=== PATIENT | male | born 1940 | race Caucasian/White ===

== ENCOUNTER → 2017-06-26 | Outpatient (CLI) | payer OTHER ==
[~2017-06-26] MED LIST: ACETAMINOPHEN325 M1 PO; ANAPROX; ASPIRIN325 PO; AZITHROMYCIN 2250 MG PO; BACTRIM DS TAB1 EACH PO; CO Q-10; COLACE100 MG PO; FISH OIL 1,0001 EAC5; HYDROCODON-ACE1 EAC7 PO; KEFLEX500 MG PO; LISINOPRIL-HCT1 EAC2; METAMUCIL PAC1 UDPK1 PO; MOM PO; MULTIVITAMINS1 EAC7; NEXIUM; OXYIR 5 MG CAPSU5 M1 PO; SIMVASTATIN40 MG; XARELTO10 M1 PO; ZOCOR
== END ==
LOC: M.LAB 10:23
DX: Z01.812 Encounter for preprocedural laboratory examination (principal)

== ENCOUNTER → 2019-03-17 | Outpatient (CLI) | payer OTHER | LOC: M.ULTRA 12:56 | DX: I73.9 Peripheral vascular disease, unspecified (principal) ==

== ENCOUNTER 2019-08-05 19:12 | Emergency (ER) | payer MEDICARE ==
[~2019-08-05] VITALS: Ht 177.8 cm; Wt 74.8 kg
[2019-08-05 20:31] LABS: HEMATOCRIT 39.4 % (42.0-52.0); HEMOGLOBIN 13.9 gm/dL (14.0-18.0); MCH 30.6 pg (26.0-34.0); MCHC 35.2 g/dL (28.0-37.0); MCV 86.9 fL (80.0-100.0); MPV 10.1 fl. (7.2-11.1); NUCLEATED RBCS 0 /100WBC; PLATELET COUNT* 155 thou/uL (150-400); RBC 4.53 mil/uL (4.50-6.00); RDW-CV 14.4 % (10.5-14.5)
[2019-08-05 20:37] LABS: CALCIUM 7.9 mg/dL (8.5-10.1); CREATININE 0.8 mg/dL (0.6-1.3); POTASSIUM 4.8 mmol/L (3.5-5.1)
[2019-08-05 20:48] LABS: ALBUMIN 3.6 g/dL (3.4-5.0); TOTAL BILIRUBIN 0.8 mg/dL (<0.1-1.0); TOTAL PROTEIN 7.1 g/dL (6.4-8.2)
[2019-08-05 20:56] LABS: URINE BILIRUBIN NEGATIVE (Negative); URINE BLOOD NEGATIVE (Negative); URINE CLARITY CLEAR; URINE COLOR YELLOW; URINE GLUCOSE-RANDOM NEGATIVE (Negative); URINE KETONES 1+ (Negative); URINE LEUKOCYTES-REFLEX NEGATIVE (Negative); URINE NITRITE-REFLEX NEGATIVE (Negative); URINE PROTEIN 1+ (Negative); URINE UROBILINOGEN 0.2 E.U./dl (0.2-1.0)
[2019-08-05 21:22] LABS: ABSOLUTE EOSINOPHILS 0.1 thou/uL (0.0-0.7); ABSOLUTE LYMPHOCYTES 2.2 thou/uL (0.8-5.3); ABSOLUTE MONOCYTES 1.1 thou/uL (0.0-1.2); ABSOLUTE NEUTROPHILS 2.6 thou/uL (1.6-8.1); ANISOCYTOSIS 1+; PLATELET ESTIMATE ADEQUATE; POIKILOCYTOSIS 1+
[2019-08-05 21:30] VITALS: BP 93/75
--- NOTE | 2019-08-06 16:46 | EKG ---
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1940 Requested By: Itzel Gonzalez Order Number: [id number] MD: Shun Rolon Measurements Intervals [place] Rate: 53 P: 63 NE: 163 QRS: -2 QRSD: 149 T: 32 QT: 482 QTc: 453 Interpretive Statements Sinus rhythm Right bundle branch block Compared to ECG 09/10/2012 13:13:13 Right bundle-branch block now present Sinus bradycardia no longer present Incomplete right bundle-branch block no longer present Electronically Signed On 08-06-2019 16:45:08 CDT by Shun Rolon [email or web address] <ELECTRONICALLY SIGNED> By: Shun Rolon MD, [facility] 08/06/19 1645 30 30 Shun Rolon MD, [facility] /EPI
== END 2019-08-05 21:30 | disposition home or self-care (01) ==
LOC: M.ERS 19:12
PROVIDERS: Personal Emergency Response Attendant
DX: R42 Dizziness and giddiness (principal); I16.0 Hypertensive urgency; E78.5 Hyperlipidemia, unspecified; Z79.899 Other long term (current) drug therapy; Z88.0 Allergy status to penicillin; Z88.8 Allergy status to other drugs, medicaments and biological substances

== ENCOUNTER 2021-05-18 23:59 | Inpatient (IN) | payer MEDICARE ==
[~2021-05-18] VITALS: Ht 177.8 cm; Wt 77.1 kg
[2021-05-19] VITALS (71 sets, daily range): BP systolic 120–184; BP diastolic 37–102
[2021-05-19] MEDS ORDERED: NORVASC5 MG PO (00:37)
[2021-05-19] MEDS ORDERED: CARVEDILOL3.125 MG PO (00:37)
[2021-05-19] MEDS ORDERED: HYDRALAZINE 2525 MG PO (00:38)
[2021-05-19] MEDS ORDERED: LISINOPRIL10 MG PO (00:38)
[2021-05-19 00:42] LABS: PCO2 39.5 mmHg (35.0-45.0); PO2 83.7 mmHg (75.0-100.0); pH 7.439 (7.340-7.450)
[2021-05-19 00:55] LABS: HEMATOCRIT 39.4 % (42.0-52.0); HEMOGLOBIN 13.4 gm/dL (14.0-18.0); MCH 29.2 pg (26.0-34.0); MCV 85.7 fL (80.0-100.0); MPV 8.4 fl. (7.2-11.1); NUCLEATED RBCS 0 /100WBC; PLATELET COUNT* 164 thou/uL (150-400); RBC 4.59 mil/uL (4.50-6.00); RDW-CV 13.9 % (10.5-14.5); WBC 9.6 thou/uL (4.0-11.0)
[2021-05-19 00:57] LABS: CALCIUM 8.3 mg/dL (8.5-10.1); CREATININE 0.9 mg/dL (0.6-1.3); POTASSIUM 3.8 mmol/L (3.5-5.1)
[2021-05-19 01:02] LABS: ALBUMIN 3.6 g/dL (3.4-5.0); TOTAL BILIRUBIN 0.5 mg/dL (<0.1-1.0); TOTAL PROTEIN 6.9 g/dL (6.4-8.2)
[2021-05-19 01:06] LABS: APTT 30.3 Seconds (25.0-31.3); PROTIME 10.7 Seconds (9.20-11.50)
[2021-05-19 03:48] LABS: URINE BILIRUBIN NEGATIVE (Negative); URINE BLOOD 3+ (Negative); URINE COLOR YELLOW; URINE GLUCOSE-RANDOM NEGATIVE (Negative); URINE KETONES NEGATIVE (Negative); URINE LEUKOCYTES-REFLEX NEGATIVE (Negative); URINE NITRITE-REFLEX NEGATIVE (Negative); URINE PROTEIN TRACE (Negative); URINE SPECIFIC GRAVITY 1.015 (1.005-1.030); URINE UROBILINOGEN 0.2 E.U./dl (0.2-1.0)
[2021-05-19 03:56] LABS: URINE CLARITY HAZY
[2021-05-19 04:15] LABS: BACTERIA-REFLEX None Seen /HPF (None Seen); CASTS None Seen /LPF (None Seen); CRYSTALS None Seen /LPF (None Seen); MUCUS None Seen strn/LPF (None Seen); SQUAMOUS 0-3 Few /LPF (0-3); URINE RBC >20 Many /HPF (0-2); URINE WBC-REFLEX None Seen /HPF (0-5)
[2021-05-19 04:29] LABS: ABSOLUTE LYMPHOCYTES 4.9 thou/uL (0.8-5.3); ABSOLUTE MONOCYTES 1.2 thou/uL (0.0-1.2); ABSOLUTE NEUTROPHILS 3.6 thou/uL (1.6-8.1); PLATELET ESTIMATE ADEQUATE
[2021-05-19 13:36] LABS: ALBUMIN 3.4 g/dL (3.4-5.0); CALCIUM 7.8 mg/dL (8.5-10.1); CREATININE 0.8 mg/dL (0.6-1.3); POTASSIUM 4.3 mmol/L (3.5-5.1); TOTAL BILIRUBIN 0.7 mg/dL (<0.1-1.0); TOTAL PROTEIN 6.7 g/dL (6.4-8.2)
--- NOTE | 2021-05-19 14:40 | EKG ---
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 /EPI
[2021-05-20] VITALS (41 sets, daily range): BP systolic 118–172; BP diastolic 30–132
[2021-05-20 04:02] LABS: CHOLESTEROL 184 mg/dL (<200); HDL CHOLESTEROL 54 mg/dL (>40); LDL CHOLESTEROL 119 mg/dL (<100); TC:HDL 3.4 Ratio (Not establshd); TRIGLYCERIDE 59 mg/dL (<150); VLDL 12 mg/dL (<40)
[2021-05-20 04:04] LABS: SERUM ASSESSMENT CLEAR
[2021-05-21] VITALS (11 sets, daily range): BP systolic 110–164; BP diastolic 31–81
[2021-05-21 04:44] LABS: ABSOLUTE BASOPHILS 0.1 thou/uL (0.0-0.2); ABSOLUTE EOSINOPHILS 0.1 thou/uL (0.0-0.7); ABSOLUTE LYMPHOCYTES 3.9 thou/uL (0.8-5.3); ABSOLUTE MONOCYTES 1.8 thou/uL (0.0-1.2); ABSOLUTE NEUTROPHILS 3.4 thou/uL (1.6-8.1); EOSINOPHILS 0.8 %; HEMATOCRIT 37.5 % (42.0-52.0); HEMOGLOBIN 13.1 gm/dL (14.0-18.0); LYMPHOCYTES 42.2 %; MCH 29.5 pg (26.0-34.0); MCHC 34.8 g/dL (28.0-37.0); MCV 84.7 fL (80.0-100.0); MONOCYTES 19.1 %; MPV 8.7 fl. (7.2-11.1); NUCLEATED RBCS 0 /100WBC; PLATELET COUNT* 152 thou/uL (150-400); POLYS 36.9 %; RBC 4.43 mil/uL (4.50-6.00); RDW-CV 13.9 % (10.5-14.5); WBC 9.2 thou/uL (4.0-11.0)
[2021-05-21 05:18] LABS: ALBUMIN 3.1 g/dL (3.4-5.0); CALCIUM 7.7 mg/dL (8.5-10.1); POTASSIUM 3.6 mmol/L (3.5-5.1); TOTAL BILIRUBIN 0.7 mg/dL (<0.1-1.0); TOTAL PROTEIN 6.2 g/dL (6.4-8.2)
--- NOTE | 2021-05-21 14:13 | 2DMMODE ---
[place] [address] 2 D/M-MODE ECHOCARDIOGRAM Name: TYSHAWN KHANNA Room: [address] IN [place].#: [id number] Admission: 05/19/21 Attend Phys: Froy Haines, Discharge: Date of : 38 Date of Service: 05/21/21 1413 Report #: [id number] THIS REPORT FOR: cc: FAM - Family physician unknown FAM - Family physician unknown Shun Rolon MD [facility] ~ APPROVED REPORT Study performed: 05/21/2021 10:47:34 EXAM: Comprehensive 2D, Doppler, and color-flow Echocardiogram Patient Location: In-Patient Room #: 006 Status: routine BSA: 1.95 HR: 50 bpm BP: 138/54 mmHg Rhythm: NSR Other Information Study Quality: Good Indications CVA/TIA Hypertension/HDD Echo Enhancing Agent Indication: Rule out Shunt Agent(s) / Amount(s) Used: Agitated Saline 10 cc 2D Dimensions IVSd: 15.17 (7-11mm) LVOT Diam: 21.89 (18-24mm) LVDd: 42.45 mm PWd: 13.44 (7-11mm) Ascending Ao: 28.13 (22-36mm) LVDs: 27.12 (25-40mm) Aortic Root: 33.83 mm Volumes Left Atrial Volume (Systole) LA ESV Index: 41.40 mL/m2 Aortic Valve AoV Peak Darshan.: 2.43 m/s AO Peak Gr.: 23.54 mmHg LVOT Max P.[address] [address] 2 D/M-MODE ECHOCARDIOGRAM Name: CLEMENCIATYSHAWN [place] Room: [address]#: [id number] Admission: 05/19/21 Attend Phys: Froy Haines, Discharge: Date of : 38 Date of Service: 05/21/21 1413 Report #: [id number] Mean Gr.: 12.75 mmHg LVOT Mean P.85 mmHg LVOT Max V: 1.34 m/s AO V2 VTI: 53.42 cm LVOT Mean V: 0.75 m/s SARAH (VTI): 2.35 cm2 LVOT V1 VTI: 33.35 cm AI [place]: 1.63 m/s2 AI PHT: 651.00 ms Mitral Valve E/A Ratio: 0.85 MV Decel. Time: 379.17 ms MV E Max Darshan.: 0.72 m/s MV PHT: 109.96 ms MVA (PHT): 2.00 cm2 TDI E/Lateral E': 9.00 E/Medial E': 9.00 Medial E' Darshan.: 0.08 m/s Lateral E' Darshan.: 0.08 m/s Pulmonary Valve PV Peak Darshan.: 0.88 m/s PV Peak Gr.: 3.08 mmHg Left Ventricle The left ventricle is normal size. There is normal LV segmental wall motion. Mild to moderate concentric left ventricular hypertrophy. Left ventricular systolic function is normal. The left ventricular ejection fraction is within the normal range. LVEF is 60-65%. Grade I - abnormal relaxation pattern. Right Ventricle The right ventricle is normal size. The right ventricular systolic function is normal. Atria Left atrium is mildly dilated. The interatrial septum is intact with no evidence for an atrial septal defect. The right atrium size is normal. Aortic Valve Moderate aortic valve sclerosis. Mild aortic regurgitation. Mild aortic stenosis. Mitral Valve The mitral valve is normal in structure. Mild mitral regurgitation. No evidence of [place] [address] 2 D/M-MODE ECHOCARDIOGRAM Name: TYSHAWN KHANNA Room: [address] IN [facility]#: [id number] Admission: 05/19/21 Attend Phys: Froy Haines, Discharge: Date of : 38 Date of Service: 05/21/21 1413 Report #: [id number] Tricuspid Valve The tricuspid valve is normal in structure. Unable to assess PA pressure. Trace tricuspid regurgitation. Pulmonic Valve The pulmonary valve is normal in structure. There is no pulmonic valvular regurgitation. Great Vessels The aortic root is normal in size. IVC is normal in size and collapses >50% with inspiration. Pericardium There is no pericardial effusion. <Conclusion> The left ventricle is normal size. Mild to moderate concentric left ventricular hypertrophy. Left ventricular systolic function is normal. The left ventricular ejection fraction is within the normal range. LVEF is 60-65%. Grade I - abnormal relaxation pattern. The right ventricle is normal size. Left atrium is mildly dilated. The right atrium size is normal. Moderate aortic valve sclerosis. Mild aortic regurgitation. Mild aortic stenosis. The mitral valve is normal in structure. Mild mitral regurgitation. The tricuspid valve is normal in structure. IVC is normal in size and collapses >50% with inspiration. There is no pericardial effusion. There is normal LV segmental wall motion. The interatrial septum is intact with no evidence for an atrial septal defect. <ELECTRONICALLY SIGNED> By: Shun Rolon MD, FACC 05/21/21 1413 12 141 Shun Rolon MD, FACC /INF
[2021-05-22 05:59] VITALS: BP 130/44
[2021-05-22] MEDS ORDERED: BAYER CHEWABLE81 MG PO (07:53)
[2021-05-22] MEDS ORDERED: LIPITOR40 MG PO (07:53)
[2021-05-22 08:11] VITALS: BP 135/61
[2021-05-22 10:30] VITALS: BP 1358/61
== END 2021-05-22 12:00 | disposition home or self-care (01) | DRG 62 ==
LOC: M.ERS 23:59 → M.TBA-ER 05-19 03:45 → M.ICU 05-19 03:45
PROVIDERS: Personal Emergency Response Attendant; ADMIT Internal Medicine; ATTEND Internal Medicine
DX: I63.9 Cerebral infarction, unspecified (principal); G81.91 Hemiplegia, unspecified affecting right dominant side; M19.90 Unspecified osteoarthritis, unspecified site; I10 Essential (primary) hypertension; Z20.822 Contact with and (suspected) exposure to COVID-19; E78.5 Hyperlipidemia, unspecified; Z96.651 Presence of right artificial knee joint; Z88.0 Allergy status to penicillin; Z91.041 Radiographic dye allergy status; Z87.891 Personal history of nicotine dependence; Z79.82 Long term (current) use of aspirin; Z79.899 Other long term (current) drug therapy

== ENCOUNTER → 2021-07-19 | Outpatient (CLI) | payer MEDICARE ==
[~2021-07-19] MED LIST changes: +BAYER CHEWABLE81 MG PO; +CARVEDILOL3.125 MG PO; +HYDRALAZINE 2525 MG PO; +LIPITOR40 MG PO; +LISINOPRIL10 MG PO; +NORVASC5 MG PO
== END ==
LOC: M.ULTRA 10:03
PROVIDERS: ATTEND Internal Medicine Cardiovascular Disease
DX: I63.432 Cerebral infarction due to embolism of left posterior cerebral artery (principal)